=== PATIENT | female | born 1960 | race Hispanic/Latino ===

== ENCOUNTER → 2018-01-14 | Outpatient (CLI) | payer OTHER | END | disposition home or self-care (01) | LOC: OIH 14:57 | PROVIDERS: ATTEND Internal Medicine | DX: I50.9 Heart failure, unspecified (principal); I73.00 Raynaud's syndrome without gangrene; M34.1 CR(E)ST syndrome; J90 Pleural effusion, not elsewhere classified; R91.8 Other nonspecific abnormal finding of lung field; M25.812 Other specified joint disorders, left shoulder; M25.811 Other specified joint disorders, right shoulder | CPT/HCPCS: 71046 ==